=== PATIENT | male | born 1950 | race Caucasian/White ===

== ENCOUNTER 2017-11-07 11:32 | Emergency (ER) | payer MEDICARE, BC ==
[~2017-11-07] VITALS: Ht 175.3 cm; Wt 85.3 kg
[~2017-11-07 11:32] MED LIST: CEPH-570 PO; CLOP75TA15 PO; DULO60CA45 PO; ROSU20TA PO
--- NOTE | 2017-11-07 11:55 | NUR ---
BIB SELF, C/O BILATERAL LOWER EXTREMITIES SWELLING, NAD NOTED, VSS, RESP EVEN AND UNLABORED, WAITING FOR MD EUGENE.
[2017-11-07 12:30] LABS: BASOPHILS # (AUTO) 0.2 /CMM (0.0-0.2); BASOPHILS % (AUTO) 1.3 % (0.0-2.0); EOSINOPHILS % (AUTO) 0.1 % (0.0-6.0); HEMATOCRIT 41 % (39-51); HEMOGLOBIN 13.7 g/dL (13.5-17.5); LYMPHOCYTES # (AUTO) 0.7 /CMM (0.8-4.8); LYMPHOCYTES % (AUTO) 5.3 % (20.0-44.0); MEAN CORPUSCULAR HEMOGLOBIN 29 PG (26.0-33.0); MEAN CORPUSCULAR HGB CONC 34 g/dl (31.0-36.0); MEAN CORPUSCULAR VOLUME 86 fL (80-96); MONOCYTES # (AUTO) 0.4 /CMM (0.1-1.30); MONOCYTES % (AUTO) 3.1 % (2.0-12.0); NEUTROPHILS % (AUTO) 90.2 % (43.0-81.0); PLATELET COUNT (AUTO) 284 /CMM (150-450); RDW COEFFICIENT OF VARIATION 15.3 (11.5-15.0); RED BLOOD CELL COUNT(AUTO) 4.71 MIL/uL (4.5-6.0); WHITE BLOOD COUNT (AUTO) 12.3 K/uL (4.3-11.0)
[2017-11-07 12:42] LABS: CALCIUM, SERUM 9.3 mg/dL (8.5-10.1); CARBON DIOXIDE 27 mmol/L (21-32); CHLORIDE 104 mmol/L (98-107); CREATININE 1.3 mg/dL (0.6-1.3); GLUCOSE 111 mg/dL (74-106); POTASSIUM 4.2 mmol/L (3.5-5.1); SODIUM SERUM 142 mmol/L (136-145); UREA NITROGEN, BLOOD 19 mg/dL (7-18)
[2017-11-07 12:46] LABS: INR 0.88 (0.87-1.13); PROTHROMBIN TIME 9.2 SECS (9.5-12.7)
[2017-11-07 12:50] LABS: TROPONIN I < 0.017 ng/mL (0.00-0.056)
[2017-11-07 12:55] LABS: B-TYPE NATRIURETIC PEPTIDE 87 PG/ML (0-125)
[2017-11-07 15:19] VITALS: BP 145/95
--- NOTE | 2017-11-07 15:19 | NUR ---
Patient discharged to home in stable condition. Written and verbal after care instructions given. Patient verbalizes understanding of instruction.IV removed. Catheter intact and site benign. Pressure and 4x4 applied to site. No bleeding noted.
== END 2017-11-07 15:21 | disposition home or self-care (01) ==
LOC: ER 11:35
DX: R60.0 Localized edema (principal); D86.9 Sarcoidosis, unspecified; E78.00 Pure hypercholesterolemia, unspecified; I34.0 Nonrheumatic mitral (valve) insufficiency; Z86.73 Personal history of transient ischemic attack (TIA), and cerebral infarction without residual deficits
CPT/HCPCS: 36415; 71010; 80048; 83880; 84484; 85025; 85730; 93307; 93970; 99285; A4606; Z7610